=== PATIENT | female | born 1945 | race Caucasian/White ===

== ENCOUNTER → 2017-05-04 | Outpatient (CLI) | payer MEDICARE, BC ==
[~2017-05-04] MED LIST: ASPI-496 PO; ATOR80TA75 PO; CEPH500T PO; CHOL200012 PO; HYDR-3138 PO; HYDR25TA6 PO; ONDA4TAB13 SL; POTA10TA12 PO
[2017-05-04 11:07] LABS: EPI LOT# 5695218
[2017-05-04 11:11] LABS: PLATELET (PFA) 217 x10^3/uL (130-400)
[2017-05-04 11:20] LABS: ASPARTATE AMINO TRANSFERASE 16 U/L (15-37); BLOOD UREA NITROGEN 27 mg/dL (7-18)
[2017-05-04 11:37] LABS: PATH.CAST-FLAG NOT PRESENT; SPERM-FLAG NOT PRESENT; SRC-FLAG NOT PRESENT; XTAL-FLAG NOT PRESENT; YLC-FLAG NOT PRESENT
[2017-05-04 11:53] LABS: EPI CARTRIDGE 130 SECONDS (72-193)
== END | disposition home or self-care (01) ==
LOC: STAR 09:27
PROVIDERS: ATTEND Neurological Surgery
DX: Z01.818 Encounter for other preprocedural examination (principal); R94.31 Abnormal electrocardiogram [ECG] [EKG]; D42.0 Neoplasm of uncertain behavior of cerebral meninges
CPT/HCPCS: 36415; 71020; 80053; 81001; 85014; 85025; 85049; 85576; 85610; 85730; 87086; 93005

== ENCOUNTER → 2017-05-04 | Outpatient (CLI) | payer MEDICARE, BC | END | disposition home or self-care (01) | LOC: CFH 09:48 | PROVIDERS: ATTEND Neurological Surgery | DX: D42.0 Neoplasm of uncertain behavior of cerebral meninges (principal); J32.3 Chronic sphenoidal sinusitis | CPT/HCPCS: 70486 ==

== ENCOUNTER 2017-05-18 07:23 | Inpatient (IN) | payer MEDICARE, BC ==
[~2017-05-18] VITALS: Ht 161.3 cm; Wt 66.0 kg
[~2017-05-18 07:23] MED LIST changes: -CEPH500T PO; -HYDR-3138 PO; -ONDA4TAB13 SL
[2017-05-18] MEDS ORDERED: BACITRACIN 50,000 UNIT ONE (07:40)
[2017-05-18] MEDS ORDERED: BACITRACIN OINT 500U/GM, 15 GM ONE (07:40)
[2017-05-18] MEDS ORDERED: LIDOCAINE/PF 1%, 30ML ONE (07:40)
[2017-05-18] MEDS ORDERED: EPINEPHRINE 1 MG/ML, 1ML ONE (07:40)
[2017-05-18] MEDS ORDERED: THROMBIN 5,000 UNIT VIAL TP ONE (07:40)
[2017-05-18] MEDS ORDERED: LACTATED RINGERS 1,000 ML IV SCH (08:43)
[2017-05-18] MEDS ORDERED: OXYMETAZOLINE NASAL SPRAY 0.05%, 15ML ONE (10:13)
[2017-05-18] MEDS ORDERED: COCAINE TOPICAL SOLN 4%, 4ML ONE (10:13)
[2017-05-18] MEDS ORDERED: SUFentanil 50 MCG/ML, 1ML ONE (10:28)
[2017-05-18] MEDS ORDERED: FENTANYL PF 100 MCG/2ML ONE ×2 (10:28→12:32)
[2017-05-18] MEDS ORDERED: ONDANSETRON 2MG/ML, 2ML ONE (10:29)
[2017-05-18] MEDS ORDERED: PROPOFOL 10 MG/ML, 20ML ONE (10:29)
[2017-05-18] MEDS ORDERED: PROPOFOL 10 MG/ML, 50ML ONE (10:29)
[2017-05-18] MEDS ORDERED: CEFUROXIME 1.5 GM ONE (10:29)
[2017-05-18] MEDS ORDERED: ROCURONIUM 10 MG/ML ONE (10:29)
[2017-05-18] MEDS ORDERED: LABETALOL 5MG/ML, 20ML IV PRN (11:30)
[2017-05-18] MEDS ORDERED: hydrALAzine 20 MG/ML, 1ML IV PRN (11:30)
[2017-05-18] MEDS ORDERED: PROMETHAZINE 25 MG/ML, 1ML IV PRN (11:30)
[2017-05-18] MEDS ORDERED: HYDROmorphone 1 MG/ML, 1ML IV PRN (11:30)
[2017-05-18] MEDS ORDERED: OXYcodone 5 MG/5 ML ORAL.SOL UDC PO PRN (11:30)
[2017-05-18] MEDS ORDERED: ONDANSETRON 2MG/ML, 2ML IVPush PRN ×2 (11:30→20:00)
[2017-05-18] MEDS ORDERED: LIDOCAINE 1%-EPI 1:100K, 30ML INFIL ONE (11:37)
[2017-05-18] MEDS ORDERED: OXYcodone 5 MG/5 ML ORAL.SOL UDC ONE (12:32)
[2017-05-18] MEDS: FENTANYL PF 100 MCG/2ML IV PRN ×2 (12:36→13:10)
[2017-05-18] MEDS ORDERED: hydrALAzine 20 MG/ML, 1ML ONE (12:59)
[2017-05-18] MEDS ORDERED: HYDROmorphone 1 MG/ML, 1ML ONE (13:46)
[2017-05-18] MEDS ORDERED: ACETAMINOPHEN 650 MG SUPP PR PRN (15:00)
[2017-05-18] MEDS ORDERED: HYDROcodone/APAP 5/325 TABLET PO PRN (15:00)
[2017-05-18] MEDS ORDERED: D5%-0.9% NACL+KCL 20MEQ 1,000 ML IV SCH (15:00)
[2017-05-18] MEDS ORDERED: ONDANSETRON 2MG/ML, 2ML IV PRN (15:00)
[2017-05-18] MEDS ORDERED: ACETAMINOPHEN 325 MG TABLET PO PRN (15:00)
[2017-05-18] MEDS ORDERED: FENTANYL PF 100 MCG/2ML IV PRN (15:00)
[2017-05-18] MEDS: OXYcodone/APAP 5/325MG TABLET PO PRN (16:39)
[2017-05-18] MEDS: CEFUROXIME 1.5 GM in SODIUM CHLORIDE 0.9% 50 ML IVPB SCH (18:39)
[2017-05-18] MEDS ORDERED: SODIUM CHLORIDE 0.9%, 500ML IVBOLUS ONE (20:00)
[2017-05-18 20:05] VITALS: BP 127/67
[2017-05-19 01:10] VITALS: BP 111/52
[2017-05-19] MEDS: CEFUROXIME 1.5 GM in SODIUM CHLORIDE 0.9% 50 ML IVPB SCH (03:29)
[2017-05-19 04:00] VITALS: BP 98/51
[2017-05-19 05:48] LABS: BLOOD UREA NITROGEN 15 mg/dL (7-18)
[2017-05-19 09:00] VITALS: BP 107/61
[2017-05-19] MEDS: OXYcodone/APAP 5/325MG TABLET PO PRN (09:36)
[2017-05-19] MEDS ORDERED: CEPH500T PO (12:22)
[2017-05-19] MEDS ORDERED: HYDR-3138 PO (12:22)
[2017-05-19] MEDS ORDERED: ONDA4TAB13 SL (12:35)
[2017-05-19 13:16] VITALS: BP 125/61
[2017-05-19] MEDS ORDERED: D5%-0.9% NACL+KCL 20MEQ 1,000 ML IV SCH (15:00)
== END 2017-05-19 13:40 | disposition home or self-care (01) | DRG 615 ==
LOC: ORIP 07:23 → 4NOR 14:47
PROVIDERS: ADMIT Neurological Surgery; ATTEND Neurological Surgery
PROC: 0GB04ZZ Excision of Pituitary Gland, Percutaneous Endoscopic Approach (ICD-10-PCS; principal; 2017-05-18 10:30)
DX: D35.2 Benign neoplasm of pituitary gland (principal); Z88.1 Allergy status to other antibiotic agents; I10 Essential (primary) hypertension; E78.00 Pure hypercholesterolemia, unspecified; Z90.89 Acquired absence of other organs; Z90.710 Acquired absence of both cervix and uterus; Z82.49 Family history of ischemic heart disease and other diseases of the circulatory system; Z80.9 Family history of malignant neoplasm, unspecified
CPT/HCPCS: 36415; 80048; 82533; 88305; 88333; C1713; J0171; J0697; J1170; J2405; J2704; J3010; J3490; A4648; C1781; J0360; J3480; J7040; J7120

== ENCOUNTER → 2018-10-07 | Outpatient (CLI) | payer MEDICARE, BC ==
[~2018-10-07] MED LIST changes: +ATOR-2 PO; -ATOR80TA75 PO; +CEPH500T PO; -CHOL200012 PO; +CHOL200074 PO; +GADOBUTROL 7.5 MMOL/7.5 ML PFS ONE; +HYDR-3237 PO; +ONDA4TAB13 SL
== END | disposition home or self-care (01) ==
LOC: CFH 09:43
PROVIDERS: ATTEND Radiology Radiation Oncology
DX: I67.82 Cerebral ischemia (principal); R90.82 White matter disease, unspecified; D32.0 Benign neoplasm of cerebral meninges; I10 Essential (primary) hypertension
CPT/HCPCS: 70553; A9585

== ENCOUNTER → 2018-10-30 | Outpatient (CLI) | payer MEDICARE, BC ==
[~2018-10-30] MED LIST changes: -GADOBUTROL 7.5 MMOL/7.5 ML PFS ONE
== END | disposition home or self-care (01) ==
LOC: ROC 07:27
PROVIDERS: ATTEND Radiology Radiation Oncology
DX: Z08 Encounter for follow-up examination after completed treatment for malignant neoplasm (principal); C70.0 Malignant neoplasm of cerebral meninges
CPT/HCPCS: G0463

== ENCOUNTER 2019-10-08 09:08 | Outpatient (CLI) | payer MEDICARE, BC ==
[2019-10-08] MEDS ORDERED: GADOTERATE 2.5 MMOL/5 ML VIAL ONE (09:51)
== END 2019-10-08 23:59 | disposition home or self-care (01) ==
LOC: CFH 09:08
PROVIDERS: ATTEND Radiology Radiation Oncology
DX: D32.0 Benign neoplasm of cerebral meninges (principal); Z88.1 Allergy status to other antibiotic agents
CPT/HCPCS: 70553; A9575

== ENCOUNTER 2019-12-30 09:21 | Emergency (ER) | payer MEDICARE, BC ==
[~2019-12-30] VITALS: Ht 160 cm; Wt 58.2 kg
--- NOTE | 2019-12-30 10:09 | NUR ---
PT HERE WITH C/O HEADACHE, SENT FROM [facility] OFFICE FOR LEFT LEG WEAKNESS, DOUBLE VISION, AND HEADACHE. PER PT, SHE HAS A HX OF A MENIGIOMA (DIAGNOSED 2 YEARS AGO). PT AAO X 4, NAD, ROOM AIR, CALL LIGHT WITHIN REACH. PT DRESSED IN GOWN AND ATTACHED TO MONITOR, PIV ESTABLISHED BY THIS RN AND LABS DRAWN AND SENT, SIDERAIL X [address] FAMILY AT BEDSIDE, PA IN ROOM FOR ASSESSMENT.
[2019-12-30 10:29] LABS: BASOPHILS # (AUTO) 0.07 x10^3/uL (0-0.1); BASOPHILS % (AUTO) 1 % (0-1); EOSINOPHILS # (AUTO) 0.06 x10^3/uL (0-0.4); EOSINOPHILS % (AUTO) 1 % (1-7); LYMPHOCYTES # (AUTO) 0.72 x10^3/uL (1-3.4); LYMPHOCYTES % (AUTO) 8 % (22-44); MD NO; MEAN CORPUSCULAR HEMOGLOBIN 31.1 pg (27.0-34.8); MEAN CORPUSCULAR HGB CONC 33.6 g/dL (32.4-35.8); MEAN CORPUSCULAR VOLUME 92.5 fL (80-100); MEAN PLATELET VOLUME 10.2 fL (7.4-10.4); MONOCYTES # (AUTO) 1.21 x10^3/uL (0.2-0.8); MONOCYTES % (AUTO) 13 % (2-9); NEUTROPHILS % (AUTO) 78 % (42-75); PLATELET COUNT 225 x10^3/uL (130-400); RED BLOOD COUNT 4.59 x10^6/uL (3.82-5.3); RED CELL DISTRIBUTION WIDTH 13.8 % (9.6-15.2)
[2019-12-30 10:36] LABS: ANION GAP 7 mmol/L (5-15); CALCIUM 9.4 mg/dL (8.5-10.1); CHLORIDE 107 mmol/L (98-107)
[2019-12-30 10:37] LABS: CREATININE 0.94 mg/dL (0.55-1.02)
--- NOTE | 2019-12-30 11:25 | NUR ---
PT AMBULATORY TO RESTROOM WITH STEADY GAIT AND NO STAFF ASSISTANCE.
[2019-12-30] MEDS ORDERED: SODIUM CHLORIDE FLUSH 10ML SYR IVF ONE (11:30)
--- NOTE | 2019-12-30 12:20 | NUR ---
PT TO MRI.
[2019-12-30] MEDS ORDERED: GADOTERATE 10 MMOL/20 ML VIAL ONE (13:26)
[2019-12-30 13:37] VITALS: BP 124/55
--- NOTE | 2019-12-30 13:37 | NUR ---
PT BACK FROM MRI.
--- NOTE | 2019-12-30 14:41 | NUR ---
Break RN: First contact w/ pt, MD Mcintyre to discharge pt.
--- NOTE | 2019-12-30 14:55 | NUR ---
Patient/Caregiver given discharge instructions and they have confirmed that they understand the instructions. Patient ambulatory with steady gait.
== END 2019-12-30 15:27 | disposition home or self-care (01) ==
LOC: ED 14:48
DX: R20.2 Paresthesia of skin (principal); H53.8 Other visual disturbances; R51 Headache; Z90.710 Acquired absence of both cervix and uterus
CPT/HCPCS: 36415; 70544; 70549; 70553; 80048; 82040; 85025; 99285; A9575

== ENCOUNTER 2020-01-07 10:57 | Observation (INO) | payer MEDICARE, BC ==
[~2020-01-07] VITALS: Ht 160 cm; Wt 58.9 kg
--- NOTE | 2020-01-07 11:39 | NUR ---
DR GREENBERG BS FOR EXAM. PT WAS AMBULATORY TO ED ROOM W/ STEADY GAIT, ACCOMPANIED BY SISTER. PT TAKING PLAVIX & BABY ASA. PT A&OX4, RESP EVEN & UNLABORED, SPEECH CLEAR, SKIN WNL EXCEPT FOR SHAVING-RELATED ABRASIONS TO RT LOWER LEG. C/O "TIA-LIKE SYMPTOMS" LAST SUNDAY: LT ARM TOTALLY NUMB & WEAK, SLIGHT TINGLE TO LT UPPER LIP. LASTED 45 MIN. LAST NOC, LT ARM FELT WEAK & TINGLY, LT SIDED FACIAL NUMBNESS - WAS ABLE TO SMILE NORMALLY, SPEECH NORMAL. DENIES SOSA, CP, DYSNPNEA, SOB. CURRENTLY: NUMBNESS, TINGLING TO LT THUMB ONLY. SENSATION OTHERWISE INTACT. STRENGTH EQUAL BILAT. TOOK ASA 81MG AT 0700 TODAY. LAST ORAL INTAKE: 0800.
[2020-01-07] MEDS ORDERED: CLOP75TA52 PO (11:49)
[2020-01-07] MEDS ORDERED: POTA10TA31 PO (11:51)
[2020-01-07] MEDS ORDERED: SODIUM CHLORIDE FLUSH 10ML SYR IVF ONE (12:00)
[2020-01-07 12:12] LABS: BASOPHILS # (AUTO) 0.03 x10^3/uL (0-0.1); BASOPHILS % (AUTO) 0 % (0-1); EOSINOPHILS # (AUTO) 0.04 x10^3/uL (0-0.4); EOSINOPHILS % (AUTO) 1 % (1-7); LYMPHOCYTES # (AUTO) 1.82 x10^3/uL (1-3.4); LYMPHOCYTES % (AUTO) 26 % (22-44); MD NO; MEAN CORPUSCULAR HEMOGLOBIN 30.8 pg (27.0-34.8); MEAN CORPUSCULAR HGB CONC 33.3 g/dL (32.4-35.8); MEAN CORPUSCULAR VOLUME 92.6 fL (80-100); MEAN PLATELET VOLUME 8.9 fL (7.4-10.4); MONOCYTES # (AUTO) 0.73 x10^3/uL (0.2-0.8); MONOCYTES % (AUTO) 11 % (2-9); NEUTROPHILS % (AUTO) 62 % (42-75); PLATELET COUNT 299 x10^3/uL (130-400); RED BLOOD COUNT 4.49 x10^6/uL (3.82-5.3); RED CELL DISTRIBUTION WIDTH 13.1 % (9.6-15.2)
[2020-01-07 12:18] LABS: ALBUMIN 3.5 g/dL (3.4-5.0); ANION GAP 5 mmol/L (5-15); CALCIUM 9.1 mg/dL (8.5-10.1); CHLORIDE 105 mmol/L (98-107); CREATININE 0.82 mg/dL (0.55-1.02)
--- NOTE | 2020-01-07 12:45 | NUR ---
TO CT PER AUBREY
[2020-01-07 12:56] LABS: INTERNATIONAL NORMALIZED RATIO 0.97 (0.93-1.1); PROTHROMBIN TIME 10.3 Seconds (9.6-11.5)
[2020-01-07] MEDS ORDERED: OMNIPAQUE 350 MG/ML, 100ML BOTTLE ONE (14:27)
--- NOTE | 2020-01-07 15:42 | NUR ---
DIET TRAY ORDERED.
--- NOTE | 2020-01-07 16:10 | NUR ---
PT REPORT TO MATTHEW MAY FOR ROOM 488-2
[2020-01-07 16:47] VITALS: BP 141/60
[2020-01-07] MEDS ORDERED: POTASSIUM CHLORIDE 10 MEQ TABLET.ER PO SCH (18:30)
[2020-01-07 19:51] VITALS: BP 122/73
[2020-01-07] MEDS ORDERED: ATORVASTATIN 80 MG TABLET PO SCH (21:00)
[2020-01-08 01:16] VITALS: BP 110/69
[2020-01-08 04:52] VITALS: BP 116/74
--- NOTE | 2020-01-08 05:19 | NUR ---
LAVERNE VILLA - Fall Risk Medications NOT present and receiving anticoagulants.
[2020-01-08 07:51] VITALS: BP 72/41
[2020-01-08] MEDS ORDERED: CLOPIDOGREL 75 MG TABLET PO SCH (09:00)
[2020-01-08] MEDS ORDERED: ASPIRIN 81 MG TABLET EC PO SCH (09:00)
[2020-01-08 12:20] VITALS: BP 112/72
== END 2020-01-08 18:29 | disposition home or self-care (01) ==
LOC: ED 12:04 → EDIP 13:52 → INTOOBSV 13:52 → 4EST 16:46
PROVIDERS: ADMIT Family Medicine; ATTEND Family Medicine
DX: G45.9 Transient cerebral ischemic attack, unspecified (principal); E87.6 Hypokalemia; I95.9 Hypotension, unspecified; I11.0 Hypertensive heart disease with heart failure; I50.9 Heart failure, unspecified; E78.5 Hyperlipidemia, unspecified; G46.0 Middle cerebral artery syndrome; E89.0 Postprocedural hypothyroidism; D32.9 Benign neoplasm of meninges, unspecified; Z90.710 Acquired absence of both cervix and uterus; Z79.02 Long term (current) use of antithrombotics/antiplatelets; Z79.82 Long term (current) use of aspirin; Z79.899 Other long term (current) drug therapy; Z86.011 Personal history of benign neoplasm of the brain
CPT/HCPCS: 36415; 70450; 70496; 70498; 70551; 80048; 82040; 85025; 85610; 93005; 93880; 99285; G0378; Q9967